=== PATIENT | female | born 1945 | race Caucasian/White ===

== ENCOUNTER 2024-09-09 11:07 | Emergency (ER) | payer MEDICARE, BC ==
[2024-09-09 11:20] VITALS: RESP 18; TEMP 97.9
--- NOTE | 2024-09-09 11:56 | ERPHSYRPT ---
- History of Present Illness Source: patient Exam Limitations: no limitations Patient Subjective Stated Complaint: Pt states "I was using my new hedtrimmers and I got my fingers." Triage Nursing Assessment: Pt presented alert and oriented X 3, pt offered a wheelchair and she declined.PT ambulates with an upright steady gait, able to speak in clear full sentences. Pt has her third and fourth digits wrapped in a napkin. Pt has X shaped lacerations noted to tip of third and fourth digits, slight bleeding noted. Physician History: Patient has a laceration to her 3rd and 4th fingertips. It is at the distal area of the fingertips. It was from aHead tremor.Nothing makes his symptoms better or worse. Allergies/Adverse Reactions: Penicillins Allergy (Mild, Verified 02/14/12 12:42) Hives propoxyphene HCl [From Darvon] Adverse Reaction (Mild, Verified 02/14/12 12:42) Vomiting morphine Adverse Reaction (Verified 02/14/12 12:42) Vomiting Home Medications: Hydrochlorothiazide 1 tab PO DAILY 01/31/12 [History] Lisinopril 1 tab PO DAILY 01/31/12 [History] Nadolol 20 mg 20 mg PO DAILY 02/14/12 [History] HydrALAzine HCL 25 MG TAB [Apresoline 25 MG TABLET] 25 mg PO BID 09/09/24 [History] Hx Tetanus, Diphtheria Vaccination/Date Given: Yes Hx Influenza Vaccination/Date Given: No Hx Pneumococcal Vaccination/Date Given: No Travel Risk - International Travel Have you traveled outside of the country in past 3 weeks: No - Emerging Infectious Disease Are you exhibiting symptoms associated with any current EIDs: No - Review of Systems Constitutional: No Symptoms Eyes: No Symptoms Ears, Nose, & Throat: No Symptoms Respiratory: No Symptoms Cardiac: No Symptoms Abdominal/Gastrointestinal: No Symptoms Genitourinary Symptoms: No Symptoms Skin: No Symptoms Neurological: No Symptoms Psychological: No Symptoms - Past Medical History Pertinent Past Medical History: Yes Neurological History: No Pertinent History ENT History: No Pertinent History Cardiac History: Hypertension Respiratory History: No Pertinent History Endocrine Medical History: Diabetes Type II Musculoskeletal History: Arthritis, Fibromyalgia GI Medical History: GERD, Ulcer History: No Pertinent History Psycho-Social History: No Pertinent History Female Reproductive Disorders: No Pertinent History Other Medical History: celiac - Past Surgical History Past Surgical History: Yes Neuro Surgical History: No Pertinent History Cardiac: No Pertinent History Respiratory: No Pertinent History Gastrointestinal: Appendectomy, Cholecystectomy Genitourinary: No Pertinent History Musculoskeletal: No Pertinent History Female Surgical History: Hysterectomy Other Surgical History: bilat carpel tunner - Social History Smoking Status: Never smoker Exposure to second hand smoke: Yes Drug Use: none - Social Determinants of Health Will the patient participate in the screening: Yes Do you worry about a steady place to live?: No Do you have any problems with any of the following?: No known problems In the past 12 months,have you had to go without utilities?: No Transportation Issues: No Has anyone in your support network made you feel unsafe?: No Have you or anyone in your house had to go w/o enough food: No - Nursing Vital Signs Nursing Vital Signs: Initial Vital Signs Temperature 97.9 F 09/09/24 11:13 Pulse Rate 93 H 09/09/24 11:13 Respiratory Rate 18 09/09/24 11:13 Blood Pressure 195/87 09/09/24 11:13 O2 Sat by Pulse Oximetry 98 09/09/24 11:13 Pain Scale Pain Intensity 0 - Physical Exam General Appearance: no apparent distress Elbow/Forearm Exam: normal inspection Wrist Exam: normal inspection Hand Exam: laceration (Jagged lacerations to the distal tips of the 3rd and 4th fingers.) Neuro/Tendon Exam: normal sensation, normal motor functions, normal tendon functions Mental Status Exam: alert, oriented x 3, cooperative Skin Exam: normal color, warm, dry SpO2: 98 - Course Nursing assessment & vital signs reviewed: Yes Ordered Tests: Active Orders 24 hr Category Date Time Status FINGER(S) Stat Exams 09/09/24 12:13 Taken Medication Summary Discontinued Medications Generic Name Dose Route Start Last Admin Trade Name Kevyn PRN Reason Stop Dose Admin Levofloxacin 250 mg 09/09/24 13:10 09/09/24 13:13 Levofloxacin 250 Mg Tab PO 09/09/24 13:11 250 mg STAT ONE Administration Levofloxacin Confirm 09/09/24 13:12 Levofloxacin 250 Mg Tab Administered 09/09/24 13:13 Dose 250 mg .ROUTE .STTypo Keyboards-MED ONE - Progress Progress: improved Progress Note: Procedure note the rings were removed with a ring cutter. The fingers were then anesthetized with a digital block. About 2 cc of lidocaine in each finger. Good anesthesia was obtained. The wounds were then thoroughly irrigated in the sink. It was explored in a bloodless field. There is no involvement of deep tissues nerves or vessels or bones. An x-ray was done and fractures were seen. The wounds were then repaired with 5-0 Ethilon in interrupted fashion. Good wound closure was obtained.Postrepair dressings were placed. Wound care instructions were given. The patient has open fractures. I went to refer her to Dr. Sousa 09/09/24 12:17 09/09/24 14:12 - Departure Departure Disposition: Home Clinical Impression: Open fracture of tuft of distal phalanx of finger Condition: Stable Critical Care Time: No Referrals: BAILEY GARCIA MD [Primary Care Provider, EMERGENCY MEDICINE] - Follow up/PCP as directed Instructions: Finger Fracture ED Additional Instructions: Take antibiotics as directed Call Dr. Sousa for follow-up Leave dressing on for 3 days then Simply cover up with a Band-Aid.You may use the splint for protection. Get sutures out in about 7 to 10 days Prescriptions: Levofloxacin [Levaquin 500 MG Tablet] 500 mg PO DAILY #7 tablet
[2024-09-09] MEDS ORDERED: Levofloxacin 250MG Tablet ONE (13:12)
[2024-09-09] MEDS: Levofloxacin 250MG Tablet PO ONE (13:13)
[2024-09-09 14:11] VITALS: BP 192/80; O2SAT 98
[2024-09-09 14:26] VITALS: PULSE 76
--- NOTE | 2024-09-09 21:00 | XRAY ---
Indication: Trauma. Comparison: None 3 view left 3rd/4th fingers demonstrates nondisplaced 4th tuft vertical fracture and tiny displaced 3rd tuft fracture, both with soft tissue swelling/laceration. Elsewhere osteopenia and mild degenerative changes all visualized IP/MCP joints. No other bony, articular, or soft tissue abnormalities.
== END 2024-09-09 14:39 | disposition home or self-care (01) ==
LOC: ED 11:07
DX: S62.665B Nondisplaced fracture of distal phalanx of left ring finger, initial encounter for open fracture (principal); S62.663B Nondisplaced fracture of distal phalanx of left middle finger, initial encounter for open fracture; W29.3XXA Contact with powered garden and outdoor hand tools and machinery, initial encounter; Y93.H2 Activity, gardening and landscaping; I10 Essential (primary) hypertension; E11.9 Type 2 diabetes mellitus without complications; Z79.899 Other long term (current) drug therapy